=== PATIENT | female | born 1990 | race Caucasian/White ===

== ENCOUNTER 2016-10-08 20:18 | Emergency (ER) | payer SELFPAY ==
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
--- NOTE | 2016-10-08 22:50 | ED ORDER SUMMARY ---
..... Patient: STEPHAN MATHIAS OrderSheet [facility] VisitID: [id number] [place] [address] 26y, F Registration Date/Time: 10/08/2016 ORDER SHEET Weight: 92.9 kg (stated) Allergies: Bees GENERAL ORDERS: CBC w Diff Urgent (21:00 10/08/2016 EKoroleva P.A.-C) (Ack 21:03 PWeiler ER Tech1) (21:36 CFalkner R.N.) Type & Rh Urgent (21:00 10/08/2016 EKoroleva P.A.-C) (Ack 21:03 PWeiler ER Tech1) (21:36 CFalkner R.N.) CMP Urgent (21:00 10/08/2016 EKoroleva P.A.-C) (Ack 21:03 PWeiler ER Tech1) (21:36 CFalkner R.N.) Serum Quantitative Urgent (21:00 10/08/2016 EKoroleva P.A.-C) (Ack 21:03 PWeiler ER Tech1) (21:23 MCook R.N.) Pelvic Exam Setup (21:00 10/08/2016 EKoroleva P.A.-C) (21:23 MCook R.N.) UA-Culture if indicated Urgent (21:04 10/08/2016 EKoroleva P.A.-C) (21:04 PWeiler ER Tech1) US OB 1st Trimester w Transvag (august 26) Urgent (21:18 10/08/2016 EKoroleva P.A.-C) (Ack 21:20 PWeiler ER Tech1) (22:28 MCook R.N.) Wet Prep (Cervix) (c) Urgent (22:34 10/08/2016 EKoroleva P.A.-C) (Ack 22:36 PWeiler ER Tech1) (23:00 MCook R.N.) MEDICATION ORDERS: IV FLUIDS: ORDER SHEET NOTES: [Electronically signed by Antwon Olivo R.N. (23:00 10/08/2016)] [Electronically signed by Marleen Bernardo P.A.-C (23:01 10/08/2016)] [Electronically locked/signed by Antwon Olivo R.N. (23:00 10/08/2016)]
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
--- NOTE | 2016-10-08 22:50 | ED ORDER SUMMARY ---
..... Patient: STEPHAN MATHIAS OrderSheet [facility] VisitID: [id number] [place] [address] 26y, F Registration Date/Time: 10/08/2016 ORDER SHEET Weight: 92.9 kg (stated) Allergies: Bees GENERAL ORDERS: CBC w Diff Urgent (21:00 10/08/2016 EKoroleva P.A.-C) (Ack 21:03 PWeiler ER Tech1) (21:36 CFalkner R.N.) Type & Rh Urgent (21:00 10/08/2016 EKoroleva P.A.-C) (Ack 21:03 PWeiler ER Tech1) (21:36 CFalkner R.N.) CMP Urgent (21:00 10/08/2016 EKoroleva P.A.-C) (Ack 21:03 PWeiler ER Tech1) (21:36 CFalkner R.N.) Serum Quantitative Urgent (21:00 10/08/2016 EKoroleva P.A.-C) (Ack 21:03 PWeiler ER Tech1) (21:23 MCook R.N.) Pelvic Exam Setup (21:00 10/08/2016 EKoroleva P.A.-C) (21:23 MCook R.N.) UA-Culture if indicated Urgent (21:04 10/08/2016 EKoroleva P.A.-C) (21:04 PWeiler ER Tech1) US OB 1st Trimester w Transvag (august 26) Urgent (21:18 10/08/2016 EKoroleva P.A.-C) (Ack 21:20 PWeiler ER Tech1) (22:28 MCook R.N.) Wet Prep (Cervix) (c) Urgent (22:34 10/08/2016 EKoroleva P.A.-C) (Ack 22:36 PWeiler ER Tech1) (23:00 MCook R.N.) MEDICATION ORDERS: IV FLUIDS: ORDER SHEET NOTES: [Electronically signed by Antwon Olivo R.N. (23:00 10/08/2016)] [Electronically signed by Marleen Bernardo P.A.-C (23:01 10/08/2016)] [Electronically locked/signed by Antwon Olivo R.N. (23:00 10/08/2016)]
--- NOTE | 2016-10-08 23:01 | ED MED RECONCILIATION SUMMARY ---
Patient: STEPHAN MATHIAS Medication Reconciliation Report [facility] VisitID: [id number] [address] [place] [address] 26y, F Registration Date/Time: 10/08/2016 Weight: 92.9 kg Height/Length: 65 in. BMI: 34.1 ALLERGIES: Bees The patient's Home Medications are listed below: NONE. The source(s) of the original Home Medication information: Not obtained. The following Medications were given to the patient in the Emergency Department: None. The following Medications were prescribed to the patient: None.
--- NOTE | 2016-10-08 23:01 | ED MED RECONCILIATION SUMMARY ---
Patient: STEPHAN MATHIAS Medication Reconciliation Report [facility] VisitID: [id number] [address] [place] [address] 26y, F Registration Date/Time: 10/08/2016 Weight: 92.9 kg Height/Length: 65 in. BMI: 34.1 ALLERGIES: Bees The patient's Home Medications are listed below: NONE. The source(s) of the original Home Medication information: Not obtained. The following Medications were given to the patient in the Emergency Department: None. The following Medications were prescribed to the patient: None.
--- NOTE | 2016-10-08 23:01 | ED MAR SUMMARY ---
..... Medication Administration Record [facility] [address] [place], [place] [id number] Patient: STEWCIELO MCLAUGHLINKATTY Blake Visit ID: [id number] 26y, F Weight: 92.9 kg Height/Length: 65 in BMI: 34.1 ALLERGIES: Bees
--- NOTE | 2016-10-08 23:01 | ED DISCHARGE INSTRUCTIONS ---
Patient: STEPHAN MATHIAS General Instructions [facility] VisitID: [id number] [place] [address] 26y, F Registration Date/Time: 10/08/2016 INSTRUCTIONS Do not work (09/29/16). (PATIENT BLOOD TYPE O Positive BETA HCG, QUANTITATIVE 6582 mIU/mL IF BLEEDING PERSISTS, need to have this re-checked in 48 hours REFERENCE RANGE: Adult Males: <2 mIU/mL Non- Females: <6 mIU/mL Females: Approximate Approximate hCG Gestational Age Range (mIU/mL) 0-1 week 0-50 1-2 weeks 40-300 2-3 weeks 100-1000 3-4 weeks 500-6000 1-2 months 5,000-200,000 2-3 months 10,000-100,000 2nd trimester 3,000-50,000 3rd trimester 1,000-50,000). Warnings: Further evaluation is necessary. Follow-up with: Eric Masters MD, Obstetrics/Gynecology, , [facility], [address] [place] [address] ADDITIONAL INFORMATION Possible Miscarriage (Threatened ) During early (first three months), it is not uncommon to have a small amount of bleeding. This can be entirely normal. But heavy bleeding or severe cramping can be an early sign of miscarriage. A miscarriage means unexpected loss of your . In about half of patients with bleeding or cramping during early , these symptoms will stop and the will continue normally. However, half of the time a miscarriage will occur. A miscarriage may occur due to various causes. These include a problem with the babys chromosomes (genes that carry the information needed for life) or with fertilization or implantation that didnt happen correctly. In most cases no cause can be found. Be reassured that this is not the result of anything that you did wrong, and it will not interfere with your ability to become in the future. Home Care: To improve the chance of keeping this , you should do the following: Rest in bed until the pain and bleeding stop. Do not have sexual intercourse for the next 3 weeks. Use sanitary napkins instead of tampons. Do not douche. Follow-Up: Make an appointment with your doctor within the next week, or as directed by our staff. Note: If you had an ultrasound, it will be reviewed by a specialist. You will be notified of any new findings that may affect your care. Get Prompt Medical Attention if any of the following occur: Vaginal bleeding or pain for more than three days Heavy bleeding (soaking one new pad an hour over three hours) Fever of 100.4F (38C) or higher, or as directed by your healthcare provider Increasing lower abdominal pain Weakness, dizziness, or fainting Passage of anything that resembles tissue: pink or grayish membrane or solid material (save the tissue in a clean container and bring to the doctor) You have been given the following additional information: Possible Miscarriage (Threatened ) Do not work (09/29/16). (Electronically signed by Marleen Bernardo P.A.-C 10/08/2016 23:01)
--- NOTE | 2016-10-08 23:01 | ED MAR SUMMARY ---
..... Medication Administration Record [facility] [address] [place], [place] [id number] Patient: STEWCIELO MCLAUGHLINKATTY Blake Visit ID: [id number] 26y, F Weight: 92.9 kg Height/Length: 65 in BMI: 34.1 ALLERGIES: Bees
--- NOTE | 2016-10-08 23:01 | ED DISCHARGE INSTRUCTIONS ---
Patient: STEPHAN MATHIAS General Instructions [facility] VisitID: [id number] [place] [address] 26y, F Registration Date/Time: 10/08/2016 INSTRUCTIONS Do not work (09/29/16). (PATIENT BLOOD TYPE O Positive BETA HCG, QUANTITATIVE 6582 mIU/mL IF BLEEDING PERSISTS, need to have this re-checked in 48 hours REFERENCE RANGE: Adult Males: <2 mIU/mL Non- Females: <6 mIU/mL Females: Approximate Approximate hCG Gestational Age Range (mIU/mL) 0-1 week 0-50 1-2 weeks 40-300 2-3 weeks 100-1000 3-4 weeks 500-6000 1-2 months 5,000-200,000 2-3 months 10,000-100,000 2nd trimester 3,000-50,000 3rd trimester 1,000-50,000). Warnings: Further evaluation is necessary. Follow-up with: Eric Masters MD, Obstetrics/Gynecology, , [facility], [address] [place] [address] ADDITIONAL INFORMATION Possible Miscarriage (Threatened ) During early (first three months), it is not uncommon to have a small amount of bleeding. This can be entirely normal. But heavy bleeding or severe cramping can be an early sign of miscarriage. A miscarriage means unexpected loss of your . In about half of patients with bleeding or cramping during early , these symptoms will stop and the will continue normally. However, half of the time a miscarriage will occur. A miscarriage may occur due to various causes. These include a problem with the babys chromosomes (genes that carry the information needed for life) or with fertilization or implantation that didnt happen correctly. In most cases no cause can be found. Be reassured that this is not the result of anything that you did wrong, and it will not interfere with your ability to become in the future. Home Care: To improve the chance of keeping this , you should do the following: Rest in bed until the pain and bleeding stop. Do not have sexual intercourse for the next 3 weeks. Use sanitary napkins instead of tampons. Do not douche. Follow-Up: Make an appointment with your doctor within the next week, or as directed by our staff. Note: If you had an ultrasound, it will be reviewed by a specialist. You will be notified of any new findings that may affect your care. Get Prompt Medical Attention if any of the following occur: Vaginal bleeding or pain for more than three days Heavy bleeding (soaking one new pad an hour over three hours) Fever of 100.4F (38C) or higher, or as directed by your healthcare provider Increasing lower abdominal pain Weakness, dizziness, or fainting Passage of anything that resembles tissue: pink or grayish membrane or solid material (save the tissue in a clean container and bring to the doctor) You have been given the following additional information: Possible Miscarriage (Threatened ) Do not work (09/29/16). (Electronically signed by Marleen Bernardo P.A.-C 10/08/2016 23:01)
--- NOTE | 2016-10-08 23:47 | DIAGNOSTIC IMAGING REPORT ---
PROCEDURE: US OB 1ST TRIMESTER W/TRANSVAG INDICATION: ABNORMAL BLEEDING TECHNIQUE: Stern scale, color, and spectral Doppler transabdominal and endovaginal sonographic images of the first trimester gravid uterus were obtained. COMPARISON: None. FINDINGS: TRANSABDOMINAL SCANS: Anteverted uterus. Gestational sac present. Normal maternal kidneys. TRANSVAGINAL SCANS: Gestational sac measures 8.3 mm, 5 weeks 5 days. KIERRA 06/05/2017. Yolk sac present . Normal right ovary. No free fluid. IMPRESSION: 1. Single intrauterine gestational sac, 5 weeks 5 days.
== END 2016-10-08 22:55 | disposition home or self-care (01) ==
LOC: ED SRH 20:18
DX: O20.0 Threatened abortion (principal); Z3A.01 Less than 8 weeks gestation of pregnancy
CPT/HCPCS: 90001; 90004; 90100; 90155; 90195; 90197; 95059